=== PATIENT | male | born 1995 | race African-American/Black ===

== ENCOUNTER 2018-11-27 11:48 | Emergency (ER) | payer SELFPAY ==
[2018-11-27 12:13] VITALS: BP 122/71; PULSE 67; TEMP 98.3; BMI 21.5
--- NOTE | 2018-11-27 14:26 | PDOC ---
History of Present Illness - General Chief Complaint: Wound Stated Complaint: LIP PAIN Time Seen by Provider: 11/27/18 13:25 History Source: Patient Exam Limitations: No Limitations Past History - Past Medical History Allergies/Adverse Reactions: Allergies Allergy/AdvReac Type Severity Reaction Status Date / Time No Known Allergies Allergy Verified 11/27/18 12:12 Home Medications: Ambulatory Orders Acyclovir 5 gm TP Q4H #1 tube 11/27/18 COPD: No Other medical history: DENIES - Immunization History Immunization Up to Date: Yes - Psycho Social/Smoking Cessation Hx Smoking History: Never smoked Have you smoked in the past 12 months: No Information on smoking cessation initiated: No Hx Alcohol Use: No Drug/Substance Use Hx: Yes (MARIJUANA) *Physical Exam - Vital Signs Last Vital Signs Temp Pulse Resp BP Pulse Ox 98.3 F 67 17 122/71 99 11/27/18 12:10 11/27/18 12:10 11/27/18 12:10 11/27/18 12:10 11/27/18 12:10 - Physical Exam General Appearance: No: Apparent Distress HEENT: positive: Other (unroofed blister along L upper lip, no other new blisters noted) Respiratory/Chest: positive: Lungs Clear, Normal Breath Sounds. negative: Respiratory Distress Cardiovascular: positive: Regular Rhythm, Regular Rate, S1, S2. negative: Murmur Integumentary: positive: Normal Color Neurologic: positive: Alert Medical Decision Making - Medical Decision Making 23 y/o M with no sig pmh presents from cold sore on lip from yesterday. He applied toothpaste on it to help dry it out which caused unroofing of the blister and skin peel. Denies fever, other complaints Cold sore - supportive management; topical antiviral as patient requesting 11/27/18 14:20 Discharge - Discharge Information Problems reviewed: Yes Clinical Impression/Diagnosis: Cold sore Condition: Stable Disposition: HOME - Admission No - Additional Discharge Information Prescriptions: Acyclovir 5 gm TP Q4H #1 tube Prescription Drug Monitoring Program (I-STOP) results: I-STOP not reviewed - Follow up/Referral - Patient Discharge Instructions Patient Printed Discharge Instructions: DI for Cold Sores Additional Instructions: Thank you for choosing [facility]. It was a pleasure taking care of you. Apply the topical ointment around 5 times a day for 4 days Avoid kissing and sharing utensils You can also apply ice to site as needed Return to the Emergency Department if your symptoms worsen or persist or have other concerning symptoms. - Post Discharge Activity
== END 2018-11-27 14:34 | disposition home or self-care (01) ==
LOC: JERFT 11:48
DX: B00.1 Herpesviral vesicular dermatitis (principal)
CPT/HCPCS: 99281-25

== ENCOUNTER 2022-04-27 08:25 | Emergency (ER) | payer OTHER ==
[2022-04-27 08:40] VITALS: BP 138/76; PULSE 68; RESP 18; TEMP 97.7; BMI 19.3
[2022-04-27] MEDS ORDERED: METHOCARBAMOL 500 MG TABLET PO ONE (08:58)
[2022-04-27] MEDS ORDERED: METHOCARBAMOL 500 MG TABLET ONE (09:08)
[2022-04-27] MEDS ORDERED: KETOROLAC TROMETHAMINE 30 MG/1 ML VIAL ONE (10:31)
[2022-04-27] MEDS ORDERED: KETOROLAC TROMETHAMINE 30 MG/1 ML VIAL IM ONE (10:31)
== END 2022-04-27 10:39 | disposition home or self-care (01) ==
LOC: JER 08:25 → JERFT 08:25
PROC: 3E0233Z Introduction of Anti-inflammatory into Muscle, Percutaneous Approach (ICD-10-PCS; principal; 2022-04-27)
DX: G44.319 Acute post-traumatic headache, not intractable (principal); M54.50 Low back pain, unspecified; M25.531 Pain in right wrist; V43.52XA Car driver injured in collision with other type car in traffic accident, initial encounter
CPT/HCPCS: 70450-TC; 72125-TC; 73110-TC-RT-FY; 73130-TC-RT-FY; 99285-25